=== PATIENT | male | born 1995 | race Caucasian/White ===

== ENCOUNTER 2016-12-03 13:04 | Emergency (ER) | payer OTHER ==
[2016-12-03 13:13] VITALS: BP 131/79
== END 2016-12-03 14:52 | disposition left against medical advice (07) ==
LOC: ED 13:04
DX: S60.459A Superficial foreign body of unspecified finger, initial encounter (principal); W45.8XXA Other foreign body or object entering through skin, initial encounter; Y92.9 Unspecified place or not applicable; Z53.21 Procedure and treatment not carried out due to patient leaving prior to being seen by health care provider
CPT/HCPCS: 99281

== ENCOUNTER 2017-07-18 00:04 | Emergency (ER) | payer OTHER ==
[2017-07-18 00:34] VITALS: BP 139/77
--- NOTE | 2017-07-18 01:39 | ED ---
Lower Extremity - HPI Summary HPI Summary: 22M presents with right ankle pain. The maria esther that was a couple feet off the ground broke and he slipped and fell and two people landed on his ankle. He has not been able to ambulate since. He denies any numbness or tingling. He denies any previous injury to the area. Pain is 8/10. did not take anything for pain. - History of Current Complaint Chief Complaint: EDExtremityLower Stated Complaint: FALL//RIGHT ANKLE PAIN Time Seen by Provider: 07/18/17 00:55 Pain Intensity: 3 - Allergies/Home Medications Allergies/Adverse Reactions: Allergies Allergy/AdvReac Type Severity Reaction Status Date / Time No Known Allergies Allergy Verified 07/18/17 00:09 PMH/Surg Hx/FS Hx/Imm Hx Endocrine/Hematology History: Denies: Hx Anticoagulant Therapy Cardiovascular History: Denies: Hx Hypertension Infectious Disease History: Denies: Traveled Outside the [place] in Last 30 Days - Family History Known Family History: Negative: Cardiac Disease - Social History Alcohol Use: Weekly Substance Use Type: Reports: Marijuana Substance Use Comment - Amount & Last Used: "a few weeks ago" Smoking Status (MU): Current Every Day Smoker Review of Systems Negative: Fever Negative: Chest Pain Negative: Shortness Of Breath Positive: Myalgia - right ankle pain All Other Systems Reviewed And Are Negative: Yes Physical Exam Triage Information Reviewed: Yes Vital Signs On Initial Exam: Initial Vitals Temp Pulse Resp BP Pulse Ox 98.5 F 123 18 157/90 97 07/18/17 00:05 07/18/17 00:05 07/18/17 00:05 07/18/17 00:05 07/18/17 00:05 Vital Signs Reviewed: Yes Appearance: Positive: Well-Appearing Skin: Positive: Warm, Dry Head/Face: Positive: Normal Head/Face Inspection Eyes: Positive: Normal, EOMI, ASHLYN, Conjunctiva Clear ENT: Positive: Normal ENT inspection, Pharynx normal, TMs normal Respiratory/Lung Sounds: Positive: Clear to Auscultation, Breath Sounds Present Cardiovascular: Positive: Normal Musculoskeletal: Positive: Limited @ - right ankle, Edema Right - lateral and medial malleolus, Other - good pulses, capillary refill<2secs Neurological: Positive: Normal Psychiatric: Positive: Normal Diagnostics - Vital Signs Vital Signs Temp Pulse Resp BP Pulse Ox 07/18/17 00:30 99.9 F 110 18 139/77 98 07/18/17 00:05 98.5 F 123 18 157/90 97 - Laboratory Lab Statement: Any lab studies that have been ordered have been reviewed, and results considered in the medical decision making process. - Radiology ankle Xray Interpretation: No Acute Changes Radiology Interpretation Completed By: ED Physician Lower Extremity Course/Dx - Course Course Of Treatment: 22M presents with right ankle pain. The balcony that was a couple feet off the ground broke and he slipped and fell and two people landed on his ankle. He has not been able to ambulate since. He denies any numbness or tingling. He denies any previous injury to the area. Pain is 8/10. on exam has edema noted to both lateral and medial aspect of ankle, good pulses , xray read by me as normal may be possible avulsion fracture of fibula but treat as sprain anyways. treat with RICE. patient understands and agrees with plan. - Diagnoses Differential Diagnosis/HQI/PQRI: Positive: Fracture (Closed), Sprain, Strain Provider Diagnoses: Right ankle injury Discharge - Discharge Plan Condition: Good Disposition: HOME Patient Education Materials: Ankle Sprain (ED) [facility] - Additional Instructions: Stay off ankle as much as possible Ice, elevate, keep in SERA Ibuprofen every 6 hours for pain Follow up with primary if no improvement Return to ED if develop any new or worsening symptoms
--- NOTE | 2017-07-18 08:04 | RAD ---
HISTORY: Right lateral malleolus pain, trauma COMPARISONS: None VIEWS: 4, Frontal, lateral, and oblique views of the right ankle FINDINGS: BONE DENSITY: Normal. BONES: There is no displaced fracture. JOINTS: There is no arthropathy. There is a joint effusion. ALIGNMENT: There is no dislocation. SOFT TISSUES: There is soft tissue swelling along lateral malleolus. OTHER FINDINGS: None. IMPRESSION: SOFT TISSUE SWELLING. JOINT EFFUSION. NO ACUTE OSSEOUS INJURY. IF SYMPTOMS PERSIST, RECOMMEND REPEAT IMAGING.
== END 2017-07-18 01:57 | disposition home or self-care (01) ==
LOC: MERGE 00:04 → ED 00:04
DX: S93.401A Sprain of unspecified ligament of right ankle, initial encounter (principal); W19.XXXA Unspecified fall, initial encounter; Y93.9 Activity, unspecified; Y92.89 Other specified places as the place of occurrence of the external cause; F17.210 Nicotine dependence, cigarettes, uncomplicated
CPT/HCPCS: 99281

== ENCOUNTER 2018-02-23 14:56 | Emergency (ER) | payer SELFPAY ==
--- NOTE | 2018-02-23 17:03 | RAD ---
Indication: ALS with generalized weakness, vision change, and abdominal pain. Comparison: No relevant prior exams available on the [facility] for comparison. Technique: Noncontrast CT vertex of skull through foramen magnum. Report: The sulci, ventricles, and basal cisterns are normal for age. [place] matter white matter differentiation is preserved without evidence for edema. No intra or extra axial hemorrhage, mass, or fluid collection detected. Unremarkable visualized orbital contents. Unremarkable calvarium and skull base. Unremarkable scalp. The visualized paranasal sinuses and mastoid air spaces are clear. IMPRESSION: Negative unenhanced head CT.
[2018-02-23 17:42] VITALS: BP 129/60
--- NOTE | 2018-02-23 20:09 | ED ---
Neurological HPI - HPI Summary HPI Summary: Pt. is a 23 y.o male who presents to the ER for evaluation after experiencing tingling to his right thumb, blurry peripheral vision, and difficutly finding words. Pt. states incident occurred on Friday afternoon, 2 days ago, and lasted 10 minutes. Pt. has had no deficits since. He denies prior drug or ETOH abuse. Admits to drinking Friday night. He denies recent URI sxs, CP, SOB, abd. pain, N/V/D. Pt. has no past medical hx. He currently has no complaints. Symptoms are mild-moderate in severity. NO current modifying factors. - History of Current Complaint Chief Complaint: EDAltMentalStatus Stated Complaint: CONFUSION ON SAT 02/21 Time Seen by Provider: 02/23/18 15:41 Pain Intensity: 0 Pain Scale Used: 0-10 Numeric - Allergy/Home Medications Allergies/Adverse Reactions: Allergies Allergy/AdvReac Type Severity Reaction Status Date / Time No Known Allergies Allergy Verified 02/23/18 15:03 PMH/Surg Hx/FS Hx/Imm Hx Previously Healthy: Yes Endocrine/Hematology History: Denies: Hx Anticoagulant Therapy Cardiovascular History: Denies: Hx Hypertension Infectious Disease History: No Infectious Disease History: Denies: Traveled Outside the [place] in Last 30 Days - Family History Known Family History: Negative: Cardiac Disease - Social History Occupation: Student Lives: Dormitory/Roommates Alcohol Use: Weekly Substance Use Type: Reports: Marijuana Substance Use Comment - Amount & Last Used: "a few weeks ago" Smoking Status (MU): Current Every Day Smoker Review of Systems Constitutional: Negative Negative: Fever, Chills Positive: Blurred Vision ENT: Negative Negative: Sore Throat, Ear Ache, Nasal Discharge Cardiovascular: Negative Negative: Palpitations, Chest Pain Respiratory: Negative Negative: Shortness Of Breath, Cough Gastrointestinal: Negative Negative: Abdominal Pain, Vomiting, Diarrhea Genitourinary: Negative Musculoskeletal: Negative Skin: Negative Positive: Paresthesia - Right thumb Psychological: Normal All Other Systems Reviewed And Are Negative: Yes Physical Exam Vital Signs On Initial Exam: Initial Vitals Temp Pulse Resp BP Pulse Ox 97.7 F 87 16 149/67 99 02/23/18 15:03 02/23/18 15:03 02/23/18 15:03 02/23/18 15:03 02/23/18 15:03 Appearance: Positive: Well-Appearing Skin: Positive: Warm, Dry Head/Face: Positive: Normal Head/Face Inspection Eyes: Positive: Normal, EOMI, ASHLYN, Conjunctiva Clear ENT: Positive: Normal ENT inspection, Pharynx normal, TMs normal. Negative: Nasal congestion, Tonsillar swelling Neck: Positive: Supple, Nontender Respiratory/Lung Sounds: Positive: Clear to Auscultation, Breath Sounds Present Cardiovascular: Positive: Normal, RRR Abdomen Description: Positive: Nontender Musculoskeletal: Positive: Normal, Strength/ROM Intact Neurological: Positive: Normal, Alert, Oriented to Person Place, Time, CN Intact II-III. Negative: Receptive Aphasia, Expressive Aphasia, Cerebellar Dysfunction, Disoriented, Facial Droop, Focal Deficit @, Slurred Speech, Dysphagia, Ataxic Gait Psychiatric: Positive: Normal Diagnostics - Vital Signs Vital Signs Temp Pulse Resp BP Pulse Ox 02/23/18 17:40 98.3 F 85 16 129/60 98 02/23/18 15:03 97.7 F 87 16 149/67 99 - Laboratory Lab Statement: Any lab studies that have been ordered have been reviewed, and results considered in the medical decision making process. 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 Non-Paretic Hand: Both Correctly Best Gaze (Only Horizontal Eye Movement): Normal Visual Field Testing: No Visual Loss Facial Paresis-Pt to Smile & Close Eyes or Grimace Symmetry: Normal/Symmetrical Motor Function - Right Arm: No Drift-Holds 10 Seconds Motor Function - Left Arm: No Drift-Holds 10 Seconds Motor Function - Right Leg: No Drift-Holds 10 Seconds Motor Function - Left Leg: No Drift-Holds 10 Seconds Limb Ataxia-Must be out of Proportion to Weakness Present: Absent Sensory (Use Pinprick to Test Arms/Legs/Trunk/Face): Normal Best Language (Describe Picture, Name Items): No Aphasia Dysarthria (Read Several Words): Normal Extinction and Inattention: No Abnormality Total Score: 0 Course/Dx - Course Course Of Treatment: Pt. presenting for evaluation for one episode of visual disturbance, tingling to right thumb and difficulty finding words that occurred 2 days ago. Today pt. has no complaints and his neurological exam is unremarkable. He is afebrile with stable vital signs. Case was discussed with Dr. Hurt, plan will be to obtain head CT. Head CT is negative for acute findings, per radiology. Results discussed. Pt. was given INFO for neurology for f.u. To return to ER if symptoms return or worsen. Pt. understands and agrees with plan. - Differential Dx Differential Diagnoses Neuro: Positive: Anxiety, Cerebrovascular Accident, Migraine, Viral Syndrome, Other - mass - Diagnoses Provider Diagnoses: Paresthesia, Visual disturbance, subjective Discharge - Sign-Out/Discharge Documenting (check all that apply): Discharge - Discharge Plan Condition: Good Disposition: HOME Patient Education Materials: Paresthesia (ED) Referrals: Harrison Barajas MD [Medical Doctor] - [facility] [Primary Care Provider] - Additional Instructions: Schedule a follow up appointment with neurology, Dr. Barajas Return to ER if symptoms change or worsen - Billing Disposition and Condition Condition: GOOD Disposition: HOME
== END 2018-02-23 17:40 | disposition home or self-care (01) ==
LOC: ED 14:56
DX: H53.8 Other visual disturbances (principal); H53.9 Unspecified visual disturbance; R20.0 Anesthesia of skin; F17.210 Nicotine dependence, cigarettes, uncomplicated
CPT/HCPCS: 70450; 99282